=== PATIENT | female | born 1935 | race Caucasian/White ===

== ENCOUNTER 2021-11-12 08:05 | Emergency (ER) | payer OTHER ==
[~2021-11-12] VITALS: Ht 157.5 cm; Wt 81.7 kg
[~2021-11-12 08:05] MED LIST: LISINOPRIL10 MG PO; NORCO 5-325 TA1 EACH PO; PROLIA60 MG/1 ML SQ; TUMS PO; ZYRTEC10 MG PO
[2021-11-12] MEDS ORDERED: LEVO-T25 MCG PO (08:20)
[2021-11-12] MEDS ORDERED: COZAAR 25 MG TA25 M1 PO (08:20)
[2021-11-12] MEDS ORDERED: PRESSER VISION (08:21)
[2021-11-12] MEDS ORDERED: CALCIUM500 MG PO (08:21)
[2021-11-12] MEDS ORDERED: CARDIZEM CD 18180 M3 PO (08:21)
[2021-11-12] MEDS ORDERED: HYDROCODON-ACE1 EAC7 PO (09:26)
[2021-11-12 09:33] VITALS: BP 152/72
== END 2021-11-12 09:34 | disposition home or self-care (01) ==
LOC: M.ERS 08:05
DX: S42.202A Unspecified fracture of upper end of left humerus, initial encounter for closed fracture (principal); M81.0 Age-related osteoporosis without current pathological fracture; I10 Essential (primary) hypertension; R51.9 Headache, unspecified; Z79.899 Other long term (current) drug therapy; Z88.8 Allergy status to other drugs, medicaments and biological substances; Z88.0 Allergy status to penicillin; W07.XXXA Fall from chair, initial encounter; Y93.89 Activity, other specified; Y92.89 Other specified places as the place of occurrence of the external cause; Y99.8 Other external cause status